=== PATIENT | female | born 2000 | race Caucasian/White ===

== ENCOUNTER 2020-12-17 14:43 | Emergency (ER) | payer MEDICAID ==
[~2020-12-17] VITALS: Ht 160 cm; Wt 59.0 kg
[2020-12-17 14:52] VITALS: BP_SYST 129
[2020-12-17] MEDS ORDERED: AMOXICILLIN/CLAVULANATE POTASSIUM 875 MG TABLET PO ONE (15:15)
[2020-12-17] MEDS ORDERED: AMOX-426 PO (16:02)
[2020-12-17 17:04] VITALS: BP_SYST 129
== END 2020-12-17 17:04 | disposition home or self-care (01) ==
LOC: SED 14:43
DX: J02.0 Streptococcal pharyngitis (principal); H61.21 Impacted cerumen, right ear; Z79.899 Other long term (current) drug therapy
CPT/HCPCS: 99283

== ENCOUNTER 2021-04-15 10:54 | Emergency (ER) | payer MEDICAID, SELFPAY ==
[~2021-04-15] VITALS: Ht 160 cm; Wt 61.2 kg
[~2021-04-15 10:54] MED LIST: AMOX-426 PO
--- NOTE | 2021-04-15 10:55 | NUR ---
Pt brought by self,A&Ox4, pt presents to ER with sore throat x 3 days, pt states it may be covid, pt afebrile, skin pink and warm, cap refill <3, VSS.
[2021-04-15 11:13] VITALS: BP_SYST 115
--- NOTE | 2021-04-15 11:20 | NUR ---
Dr Matos evaluating patient at bedside.
[2021-04-15] MEDS ORDERED: ACETAMINOPHEN 325 MG TABLET PO ONE (11:30)
[2021-04-15 13:16] VITALS: BP_SYST 115
--- NOTE | 2021-04-15 13:18 | NUR ---
Patient given written and verbal discharge instructions and verbalizes understanding. ER MD discussed with patient the results and treatment provided. Patient in stable condition. ID arm band removed. No Rx given. Patient educated on pain management and to follow up with PMD. Pain Scale 0/10 . Opportunity for questions provided and answered. Medication side effect fact sheet provided.
== END 2021-04-15 13:16 | disposition home or self-care (01) ==
LOC: SED 10:54
DX: J02.9 Acute pharyngitis, unspecified (principal); Z20.822 Contact with and (suspected) exposure to COVID-19; Z79.899 Other long term (current) drug therapy
CPT/HCPCS: 86403; 87081; 99283; U0003

== ENCOUNTER 2022-04-23 01:47 | Emergency (ER) | payer MEDICAID ==
[~2022-04-23] VITALS: Ht 160 cm; Wt 56.7 kg
--- NOTE | 2022-04-23 02:00 | NUR ---
Patient triaged and placed in waiting room. VSS and patient appears in no acute distress at this time. MD Krishna notified of need for MSE.
--- NOTE | 2022-04-23 02:01 | NUR ---
MD Krishna examining pt.
--- NOTE | 2022-04-23 02:03 | NUR ---
Urine collected and sent to lab.
[2022-04-23 02:06] VITALS: BP_SYST 133
[2022-04-23] MEDS ORDERED: NITR-85 PO (02:10)
[2022-04-23] MEDS ORDERED: PHEN-726 PO (02:10)
[2022-04-23 02:15] VITALS: BP_SYST 133
--- NOTE | 2022-04-23 02:17 | NUR ---
Patient given written and verbal discharge instructions and verbalizes understanding. ER MD Krishna discussed with patient the results and treatment provided. Patient in stable condition. ID arm band removed. Rx of Macrobid Pyridium sent to preferedPatient educated on pain management and to follow up with PMD. Opportunity for questions provided and answered. Medication side effect fact sheet provided.
[2022-04-23 02:47] LABS: BILIRUBIN,URINE NEGATIVE (NEGATIVE); BLOOD, URINE 3+ (NEGATIVE); CLARITY/URINE CLOUDY (CLEAR); COLOR,URINE YELLOW (YELLOW); GLUCOSE,URINE NEGATIVE (NEGATIVE); KETONES,URINE TRACE (NEGATIVE); LEUKOCYTE ESTERASE ,URINE 1+ (NEGATIVE); NITRITE, URINE POSITIVE (NEGATIVE); PROTEIN URINE 2+ (NEGATIVE); UROBILINOGEN,URINE 0.2 (0.2-1.0)
[2022-04-23 03:07] LABS: BACTERIA,URINE MANY /HPF (None Seen); RBC,URINE >100 /HPF (0-3); WBC,URINE 80-100 /HPF (0-3)
== END 2022-04-23 02:15 | disposition home or self-care (01) ==
LOC: SED 01:47
DX: N39.0 Urinary tract infection, site not specified (principal); R30.0 Dysuria; Z79.899 Other long term (current) drug therapy
CPT/HCPCS: 81000; 87086; 99283

== ENCOUNTER 2023-02-04 16:31 | Emergency (ER) | payer MEDICAID ==
[~2023-02-04] VITALS: Ht 160 cm; Wt 59.4 kg
[~2023-02-04 16:31] MED LIST changes: +NITR-85 PO; +PHEN-726 PO
[2023-02-04 16:35] VITALS: BP_SYST 136; PULSE 96; RESP 22; TEMP 98.3; O2SAT 100
[2023-02-04 17:06] LABS: BASOPHILS % (AUTO) 0.7 % (0.0-2.0); EOSINOPHILS # (AUTO) 0.2 K/uL (0.0-0.4); EOSINOPHILS % (AUTO) 3.8 % (0.0-4.0); HEMATOCRIT 37.4 % (36-48); HEMOGLOBIN 12.8 g/dL (12.0-16.0); LYMPHOCYTES # (AUTO) 1.6 K/uL (1.0-5.5); LYMPHOCYTES % (AUTO) 27.1 % (20.5-51.5); MEAN CORPUSCULAR HEMOGLOBIN 31 pg (27-31); MEAN CORPUSCULAR HGB CONC 34 % (32-36); MEAN CORPUSCULAR VOLUME 89 fL (79.0-98.0); MONOCYTES # (AUTO) 0.4 K/uL (0.0-1.0); NEUTROPHILS # (AUTO) 3.6 K/uL (1.8-7.7); NEUTROPHILS % (AUTO) 61.4 % (40.0-70.0); PLATELET COUNT (AUTO) 284 K/uL (130-430); RED BLOOD CELL COUNT(AUTO) 4.19 MIL/uL (4.2-6.2); RED CELL DISTRIBUTION WIDTH 12.1 % (9.0-15.0); WHITE BLOOD COUNT (AUTO) 5.9 K/uL (4.8-10.8)
[2023-02-04 19:11] VITALS: BP_SYST 115; PULSE 85; RESP 18; TEMP 98.5; O2SAT 98
== END 2023-02-04 19:09 | disposition home or self-care (01) ==
LOC: SED 16:31
DX: O20.0 Threatened abortion (principal); Z3A.01 Less than 8 weeks gestation of pregnancy; Z79.899 Other long term (current) drug therapy
CPT/HCPCS: 36415; 76856-TC; 84702; 85025; 86900; 86901; 99284